=== PATIENT | female | born 1965 | race Native Hawaiian/Other Pacific Islander ===

== ENCOUNTER 2021-03-17 13:40 | Outpatient (CLI) | payer OTHER | END 2021-03-17 20:37 | disposition home or self-care (01) | LOC: LAB 13:40 | PROVIDERS: ATTEND Family Medicine | DX: U07.1 COVID-19 (principal); R50.9 Fever, unspecified; R05.9 Cough, unspecified; M25.50 Pain in unspecified joint; R51.9 Headache, unspecified; Z11.52 Encounter for screening for COVID-19 | CPT/HCPCS: 87635; G2023; U0003 ==

== ENCOUNTER 2022-03-07 09:20 | Outpatient (CLI) | payer OTHER ==
[2022-03-07 10:12] LABS: PLATELET COUNT 301 K/uL (152-353)
[2022-03-07 10:24] LABS: PARTIAL THROMBOPLASTIN TIME 25.7 SECONDS (24.5-33.6)
[2022-03-07 10:57] LABS: POTASSIUM 3.8 mmol/L (3.6-5.2)
== END 2022-03-07 19:32 | disposition home or self-care (01) ==
LOC: LABW 09:20
PROVIDERS: ATTEND Family Medicine
DX: R07.89 Other chest pain (principal); Z82.49 Family history of ischemic heart disease and other diseases of the circulatory system; R51.9 Headache, unspecified; K21.9 Gastro-esophageal reflux disease without esophagitis; Z79.899 Other long term (current) drug therapy
CPT/HCPCS: 36415; 80053; 80061; 81002; 82550; 83735; 84439; 84443; 84484; 85027; 85610; 85730; 93005